=== PATIENT | male | born 1950 | race Caucasian/White ===

== ENCOUNTER 2017-01-09 12:49 | Inpatient (IN) | payer MEDICARE ==
--- NOTE | ~2017-01-09 | HP ---
History And Physical [place] [id number] [facility] [place]. [address] NAME: SCOTTIE OH : 54 STATUS : ADM Kenneth PAT#: [id number] AGE: 66 ADM/REG DATE : 01/09/17 MR#: [id number] REPORT SERV DATE: 01/09/17 DICTATED BY: THEODORA IRIZARRY DATE: 01/09/17 REPORT STATUS : Draft TRANSCRIBED BY: MODL DATE: 01/09/17 DATE OF ADMISSION: 01/09/2017 CHIEF COMPLAINT: Face swollen, left arm swollen. HISTORY OF PRESENT ILLNESS: Obtained from the patient who is a rather poor historian as well as the patient's family present at bedside, his sister and his present, also emergency room documents, as well as prior medical records available to us were thoroughly reviewed. According to the information available, the patient is a pleasant 66-year-old white man with a complicated and complex past medical history with baseline significant for recurrent staph infections on chronic suppressive therapy presently with doxycycline 100 mg p.o. b.i.d., presented to the emergency room by EMS because of swelling of the face and left upper extremity. The patient stated the symptoms started yesterday with a little eye swelling on the left side and then very significant this morning left eye and right eye area with almost completely shut by soft edema and swelling periorbitally. The swelling went down to the infraorbital area, left more than right, as well as noticed a swelling and redness on the left upper extremity. The patient also had a fall yesterday with some skin breakdown on the side of the nasal bridge. No significant bleeding noticed. No shortness of breath. No increased lower extremity edema (the patient had left AKA and at baseline he is mostly in bed). No coughing. No fever or chills documented in the past. The patient had this "swelling episode" usually twice a year and as per family "related infection" even though no facial swelling was reported or noticed in the past. The patient actually since his last admission for left knee hardware infection that had required fkoht-kmr-zlcp amputation in 04/2016, has not been back admitted in the hospital. The patient stated that he had missed some of his medications including for example Xarelto that was missed for about a week at that moment, but now he is back on it and now apparently he has been taking it back for several days now. In the emergency room, the patient was evaluated, he was noticed to be ill appearing, and actually his facial swelling and left upper extremity swelling has significantly decreased since his arrival in the emergency room. The patient denies any headache. Denies any phono or photophobia or URI-like symptoms. Denies starting any new medications or having any new lotions or soaps used. Further investigation revealed negative ultrasound for DVT of the left upper extremity and then slightly elevated white cell count of 11.1. Because of the above presentation and the patient's prior medical history, the patient was admitted on the Hospitalist Service for further management and evaluation. PAST MEDICAL HISTORY: Significant for hypertension, significant for reported prior CHF likely chronic diastolic dysfunction. Significant for recurrent and persistent Staph infection with MRSA in the different hardware as well as Staph epi. The patient presently is on suppressive therapy with doxycycline 100 mg p.o. b.i.d., apparently only followed up by Dr. Cristian Quintanilla of Infectious Disease; history of asthma/COPD as the patient has quit smoking long time ago; history of prostate cancer; history of DVT x2 in the past, previously on Coumadin, on Xarelto for about a year now; history of prior atrial fibrillation and irregular heart beat as per report; history of diabetes type 2, not insulin dependent; history of prior episodes of acute kidney injury; history of prostate cancer, overactive bladder, and bladder emptying problems; history of osteoarthritis and deconditioning with History And Physical [address] [address] NAME: SOCTTIE OH : 54 STATUS : ADM Kenneth PAT#: [id number] AGE: 66 ADM/REG DATE : 01/09/17 MR#: [id number] REPORT SERV DATE: 01/09/17 DICTATED BY: THEODORA IRIZARRY DATE: 01/09/17 REPORT STATUS : Draft TRANSCRIBED BY: MODL DATE: 01/09/17 multiple orthopedic surgeries with subsequent different infection and re-interventions; history of amputation of the left hofsl-aga-pbwl amputation due to infection and failure to clear the left knee hardware; history of splenectomy in the past; history of a stroke with cerebrovascular disease with TIAs in the past; history of depression and anxiety; history of chronic pain syndrome with peripheral neuropathy and opioid dependency; history of prior nephrolithiasis; history of GERD and gastric and esophageal ulcers; history of anemia; history of recurrent infections of MRSA, septic knees, varicose veins; history of glaucoma; history of recurrent cellulitis; prior history of childhood rheumatic fever and childhood nephrolithiasis; history of Corynebacterium and history of closed head injury. PAST SURGICAL HISTORY: Also complicated. Significant for splenectomy, multiple septic knee surgeries, appendectomy, cervical spine surgery, bilateral wrist surgery, thoracotomy for lung infection in 2001, bilateral shoulder surgery, vein stripping in the left leg and DVT in the legs x2, history of prostate cancer surgery in 2005 with no radiation and chemotherapy afterwards. He had multiple surgeries of the left knee over 25 or more, right total knee replacement in 2012, forehead scar cosmetic reconstruction at age 17, hernia repair in 2013, and finally amputation above the knee, left TKA in 04/2016. SOCIAL HISTORY: The patient is . Lives with the family, quite involved in his care. Quit smoking in 1985. Denies alcohol abuse. Denies illicit or recreational drug abuse. FAMILY HISTORY: Significant for diabetes and hypertension. Significant for Alzheimer disease and ALS, significant for prostate cancer. ALLERGIES: ACCORDING TO THE LIST PROVIDED, THE PATIENT IS ALLERGIC TO PENICILLIN, ERYTHROMYCIN BASE, ROCEPHIN, VANCOMYCIN, AND CODEINE. HOME MEDICATIONS: According to the list provided, the patient is supposed to take Lipitor 10 mg p.o. q.h.s.; Wellbutrin SR 150 mg p.o. t.i.d., Soma 175 mg p.o. t.i.d., Klonopin 0.5 mg p.o. q.h.s., Cardizem CD 360 mg p.o. daily, doxycycline 100 mg p.o. b.i.d., iron sulfate 325 mg p.o. daily, Neurontin 600 mg p.o. t.i.d., lisinopril 40 mg p.o. daily, metformin 500 mg p.o. daily and occasionally another one in the evening p.r.n. blood sugar more than 150, Prilosec 40 mg p.o. b.i.d., oxycodone 15 mg p.o. 5 times a day p.r.n. pain, Paxil 40 mg p.o. daily, Xarelto 20 mg p.o. q.a.m., and VESIcare 5 mg p.o. daily. REVIEW OF SYSTEMS: Per H and P, otherwise negative in all review of systems. Please note that the comprehensive review of system was obtained and pertinent positives were including in the H and P. PHYSICAL EXAMINATION: GENERAL: Pleasant, cooperative, but pale, frail, ill-appearing. VITAL SIGNS: Upon arrival in the emergency room, blood pressure 134/74, pulse 78, respiratory rate 16, temperature 97.8, and oxygen saturation 94% on room air. HEENT: Pupils are equal, round, and reactive to light. Extraocular movements intact. Throat, mild erythema. No exudate. Poor dentition. No signs of tenderness. Normocephalic. Face noticed to be with significant swelling periorbital, left more than History And Physical [address] [address] NAME: SCOTTIE OH : 54 STATUS : ADM Kenneth PAT#: [id number] AGE: 66 ADM/REG DATE : 01/09/17 MR#: [id number] REPORT SERV DATE: 01/09/17 DICTATED BY: THEODORA IRIZARRY DATE: 01/09/17 REPORT STATUS : Draft TRANSCRIBED BY: CINDY DATE: 01/09/17 right,with mild cellulitic changes at forehead and several skin breakdowns/scabs with some crusting at the bridge of the nose (significantly improved as per patient and patient's family present at bedside and confirm actually some pictures that the family members, his sister has it on her phone from this morning from home). NECK: Supple. No JVD. No bruits. No thyromegaly. No lymph nodes. LUNGS: Bilateral air entry with bibasilar crackles, emphysematous. No wheezing. HEART: Positive S1, S2. Regular rate and rhythm. Positive mitral regurgitation. Murmur at the apex. Positive aortic sclerosis murmur. PMI not displaced by palpation. ABDOMEN: Positive bowel sounds. Soft, obese, nontender, no guarding, no hepatosplenomegaly. EXTREMITIES: Status post left adrmi-ibj-lqpw amputation with decreased range of motion, osteoarthritic changes. No clubbing. No cyanosis. Trace edema. Right lower extremity; no calf tenderness. NEUROLOGIC: Alert and oriented x3. Grossly nonfocal. Cranial nerves 2 through 12 grossly intact. Motor strength 4 to 5/5 symmetrical bilateral. Deep tendon reflexes 2/2 symmetrical bilateral. Please note that the above mentioned exam is limited due to the patient's clinical condition. BACK: With decreased range of motion. No focal localized tenderness. No CVA tenderness. SKIN: With significant facial swelling and redness as described above, mostly around the left periorbital area. Previously noticed right periorbital swelling has subsided. Minimal cellulitic changes of the forehead area. Left upper extremity with slightly increased swelling comparing on the right with some redness and streaks in the part of the forearm and arm. There are noted left chest skin redness ? from recent trauma or fall on the left side, which the patient denies. There are no other signs of laceration, bruises, or rashes. SIGNIFICANT LABORATORY DATA: Left upper extremity venous duplex ultrasound by preliminary report from emergency room was negative for DVT. Urinalysis within normal limits, only small blood, but no signs of infection. White cell count 11.1, hemoglobin 12.6, platelet count 389. Sodium 143, potassium 3.5, chloride 106, bicarb 30, BUN 8, creatinine 0.77, glucose 85, calcium 0.9. Liver function tests within normal limits except albumin 3.0, which is slightly decreased. EKG not available, not done. Chest x-ray, not available, not done. Evaluation of rhythm strips on the monitor showed normal sinus rhythm at 70 beats per minute. ASSESSMENT AND PLAN AND PROBLEM LIST: The patient is a pleasant 66-year-old white man with a complex past medical history on apparent suppressive therapy for Staph infection, presented with increasing swelling of face and the left upper extremity suspicious for cellulitis in the setting of him being immunocompromised. 1. ID problem:. a. The left upper extremity swelling, possible cellulitis. b. Facial swelling and periorbital edema/possible cellulitis. c. Immunocompromised status, status post splenectomy. History And Physical [address] [address] NAME: SCOTTIE OH : 54 STATUS : ADM Kenneth PAT#: [id number] AGE: 66 ADM/REG DATE : 01/09/17 MR#: [id number] REPORT SERV DATE: 01/09/17 DICTATED BY: THEODORA IRIZARRY DATE: 01/09/17 REPORT STATUS : Draft TRANSCRIBED BY: CINDY DATE: 01/09/17 d. Leukocytosis likely infectious. e. "Chronic" staph and MRSA infections, on suppressive therapy. For all the above, we are going to admit the patient on the Hospitalist Service. We are going to obtain an ID consult. For his allergies, we are going to use Zyvox 600 mg IV q.12 hours until further diagnostic testing and evaluation possible. We are going to elevate left upper extremity and keep head/face elevated. Obtain blood cultures and check a procalcitonin and lactate level. Consider further facial/head imaging such as MRI and contrast. If the swelling and redness do not resolve. 2. Thromboembolic disease. The patient is on Xarelto for deep venous thrombosis, on chronic anticoagulation. The patient apparently had some missed doses in the last month, presently back on it. No signs of deep venous thrombosis, left upper extremity. 3. Cardiovascular:. a. Essential hypertension. b. Congestive heart failure and history of diastolic dysfunction likely chronic. Continue medications including Cardizem and lisinopril. Use IV hydralazine p.r.n. for increased blood pressure. 4. Endocrinologic problem:. a. Diabetes type 2, uncontrolled, not insulin dependent with complications. b. Hyperlipidemia, mixed type. Continue medication. Low-cholesterol diet. We are going to hold metformin for now. Check a sliding scale, diabetic education. 5. Neurologic and psychiatric problem:. a. Chronic pain syndrome, history of chronic pain medication. b. Depression, anxiety, and insomnia. Continue his home medications including the unusual dose of Wellbutrin and Paxil as well. c. Neuropathy, likely peripheral neuropathy associated with underlying medical disease. Continue Neurontin. Provide pain. 6. Chronic obstructive pulmonary disease, likely stable. Continue bronchodilator therapy p.r.n. 7. Gastroesophageal reflux disease without esophagitis. Continue PPI, anti-reflux or anti- GERD instructions discussed with the patient. 8. Status post left above-knee amputation with significant debilitation. The patient would benefit from restarting physical therapy and considering rehab. PROGNOSIS: Moderately good for this admission. Discussed with patient and the patient's family. Questions were answered in full. Please note that the patient is a full code at this moment as discussed with the patient at bedside. RF/MODL Theodora Irizarry M.D. / [id number] CC: History And Physical [address] [place]. [address] NAME: SCOTTIE OH : 54 STATUS : ADM Kenneth PAT#: [id number] AGE: 66 ADM/REG DATE : 01/09/17 MR#: [id number] REPORT SERV DATE: 01/09/17 DICTATED BY: THEODORA IRIZARRY ION DATE: 01/09/17 REPORT STATUS : Draft TRANSCRIBED BY: MODL DATE: 01/09/17 Marilynn Sparks M.D.
--- NOTE | ~2017-01-09 | DS ---
Discharge Summary [facility] [address] [place]. [address] NAME: SCOTTIE OH : 54 STATUS : DIS IN PAT#: [id number] AGE: 66 ADM/REG DATE : 01/10/17 MR#: [id number] REPORT SERV DATE: 01/16/17 DICTATED BY: YU WILKERSON DATE: 01/11/17 REPORT STATUS : Draft TRANSCRIBED BY: CINDY DATE: 01/11/17 ADMISSION DATE: 01/10/2017 DISCHARGE DATE: 01/11/2017 CONSULTATION: Infectious Disease. INVASIVE PROCEDURE/OPERATION: None. DISCHARGE DIAGNOSES: 1. Left periorbital cellulitis. 2. History of left lower extremity srpbr-ojp-otfx amputation. 3. History of deep venous thrombosis. 4. Chronic obstructive pulmonary disease. 5. Hypertension. 6. Diabetes mellitus. 7. Depression. 8. Chronic phantom pain. 9. Chronic opioid use. DISCHARGE CONDITION: Stable. IMAGING: CT of the head and face without contrast, impression; 1. No acute infarct or hemorrhage. 2. Stable mild atrophic and chronic white matter gliosis. 3. Left periorbital and preseptal soft tissue thickening without evidence of abscess collection. 4. The globes and optic nerves have a normal appearance and are asymmetric. 5. Extensive mucosal thickening with an air-fluid level in the left maxillary sinus. HISTORY OF PRESENT ILLNESS: For detailed HPI, please make reference to Dr. Irizarry's dictation on 01/09/2017. In brief, this is a 66-year-old gentleman with medical history of hypertension, who was on chronic suppressive therapy with doxycycline for recurrent staph infection due to nonsalvageable infected prosthetic device who has now undergone a left yaqfa-zst-jrjj amputation. He presented with complaint of left facial swelling and arm swelling. The patient denied any recent history of trauma prior to presentation. Denied any visual changes. No loss of vision or blurry vision. There was no associated blurry vision, double vision, or diplopia. In the ER, vital signs, blood pressure was 134/74, pulse rate was 78 beats per minute, respiratory rate was 16, temperature was 97.8, saturating 94% on room air. Physical exam was noted for left periorbital swelling with mild erythema. Also noted to have some crusting on the bridge of the nose. LABORATORY DATA: White cell count was 11.1, hemoglobin was 12.6. Creatinine was 0.77. An assessment of left periorbital cellulitis was made in the ER. The patient was admitted to the Hospitalist Service. Left periorbital cellulitis. Blood cultures were taken. The patient was started on broad- Discharge Summary [facility] [address] [facility] [place]. [address] NAME: SCOTTIE OH : 54 STATUS : DIS IN PAT#: [id number] AGE: 66 ADM/REG DATE : 01/10/17 MR#: [id number] REPORT SERV DATE: 01/16/17 DICTATED BY: YU WILKERSON DATE: 01/11/17 REPORT STATUS : Draft TRANSCRIBED BY: CINDY DATE: 01/11/17 spectrum IV antibiotics. Infectious Disease was consulted. The patient underwent CT of the head and face that showed no evidence of abscess or drainable abscess collection. Rest of the report as dictated above. The patient's WBC trended down to within normal limits. Blood cultures yielded no growth. The patient was transitioned from IV broad-spectrum antibiotics to Duricef p.o. prior to discharge. The patient was advised to continue. Also prior to discharge, the patient's left periorbital swelling significantly reduced. The patient's vision remained intact. The patient was advised to follow up with primary care physician as an outpatient within one to two weeks of discharge. Left above the knee amputation during this admission. Prior to presentation, the patient was on doxycycline for chronic suppressive therapy of an unsalvageable left arthroplasty device. However, during the last admission, the patient underwent left cuxdz-kbn-ebpv amputation. Stump during this admission appeared to be healing well. No evidence of infection in the left stump. Per ID recommendation, the patient did not require chronic suppressive therapy anymore. Hence doxycycline was discontinued during this admission. The patient will continue to follow up with primary care physician. DISCHARGE MEDICATIONS: 1. Duricef 1000 mg p.o. b.i.d. 2. Lipitor 10 mg p.o. daily. 3. Wellbutrin SR 150 mg p.o. t.i.d. 4. Diltiazem 360 mg p.o. daily. 5. Iron 325 mg p.o. daily. 6. Gabapentin 600 mg p.o. daily. 7. Lisinopril 40 mg p.o. daily. 8. Prilosec 40 mg p.o. daily. 9. Paxil 40 mg p.o. daily. 10.Xarelto 20 mg p.o. daily. 11.Klonopin 0.5 mg p.o. at bedtime. 12.Metformin 500 mg p.o. daily. 13.Oxycodone 50 mg p.o. for 5 days. DISCHARGE ACTIVITY: As tolerated. DISCHARGE DIET: ADA 1800-calorie diet. DISCHARGE FOLLOWUP: 1. Follow up with primary care physician within one week of discharge. 2. Greater than 30 minutes was used to prepare this patient's discharge, reconcile of medication, and advised the patient on discharge plans, and followup. DICTATED BY: MD JONATHAN Covarrubias/CINDY Discharge Summary [address] [address] NAME: SCOTTIE OH : 54 STATUS : DIS IN PAT#: [id number] AGE: 66 ADM/REG DATE : 01/10/17 MR#: [id number] REPORT SERV DATE: 01/16/17 DICTATED BY: YU WILKERSON DATE: 01/11/17 REPORT STATUS : Draft TRANSCRIBED BY: CINDY DATE: 01/11/17 Yu Wilkerson MD / [id number] CC: MD NATALYA Covarrubias PAUL E
[~2017-01-09 12:49] MED LIST: *UNABLE1; *UNABLE2; *UNABLE3; ACET500CAP PO; ACIDOPHILU2 PO; BEN25 PO; BIST PO; BUM1 PO; BUPROBAN150 MG PO; C5 PO; CARDCD180 PO; CARDCD360 PO; CARDIZEM LA360 MG PO; CARDIZEM PO; CAT1 PO; CLEOCIN300 MG PO; CLINDA150 PO; COUMADIN10 MG PO; COUMADIN6 MG PO; COUMADIN7.5 MG PO; DETROLLA4 PO; DILTIAZEM ER PO; DITRO5 PO; DITROPAN XL15 MG PO; DOK100 MG PO; DORYX100 MG PO; DOXYCYCLINE PO; DSS PO; FERROUS SULF325 M1 PO; FLEX PO; FLEXERIL5 MG PO; GLUCPH PO; HCTZ12.5 PO; HUMALOG SC; IMOD PO; IRON325 MG PO; KLONO1 PO; KLONO2 PO; KLONO5 PO; LEVAQUIN5T PO; LEVAQUIN750 MG PO; LIDODERM T; LIPITOR PO; LIPITOR10 PO; LISINOPRIL PO; LISINOPRIL40 MG PO; LOTRIMIN AF12 EX; LOTRIMIN AF12 TOP; LOVENOX40 SC; MELA3 PO; METFORMIN PO; METHOC750B PO; MICROZIDE PO; MONODOX100 MG PO; NATURA2 OP; NEUR100 PO; NEUR300 PO; NEUR600 PO; NEURONTIN PO; NORCO1 TAB PO; NORV10 PO; OXYCOD PO; OXYCONTIN15 MG PO; PAXIL PO; PAXIL40 MG PO; PCET PO; PERCOCET1 TA4 PO; PRILO PO; PRILOSEC40 MG PO; PRIN10 PO; PRIN20 PO; PROVHFA INH; PT UNABLE TO RECALL; RELA5 PO; REM15 PO; RESTORIL30 MG PO; ROXICODONE30 MG PO; ROZEREM8 MG PO; SENTAB PO; SOMATAB PO; SPIRIVA INH; TEARS AGAI1 PO; TEARS NATURA OPH; TIAZA3 PO; TIAZA4 PO; TREX PO; VESICARE PO; VESICARE5 PO; VIB100 PO; VIBRATAB100 MG PO; VICODINTAB PO; VISINE0.05 % OPH; VIST25 PO; WELLSR150 PO; X25 PO; X5 PO; XANAX PO; XARELTO PO; XARELTO20 MG PO; ZESTRIL40 MG PO; ZOCOR20 PO; [UNRECOGNIZED DRUG - OTHER]; [UNRECOGNIZED DRUG - OTHER] PO
[2017-01-09 16:00] LABS: ASCORBIC ACID (UR NOT ORDER) NEG (NEG); BILIRUBIN, URINE NEGATIVE (NEG); ER URINALYSIS TAT 0 Hrs 09 Mins; KETONE, URINE NEGATIVE (NEG); LEUKOCYTE ESTERASE(NOT OR NEG (NEG); NITRITE (URINE) NEG (NEG); WBC (NOT ORDERED) (RFLEX) 1 (0-5)
[2017-01-09 17:05] LABS: BASOPHILS 0.4 %; BASOPHILS ABSOLUTE 0.05 10/3/uL (0.0-0.16); EOSINOPHILS 9.8 %; EOSINOPHILS ABSOLUTE 1.09 10/3/uL (0.0-0.53); IMMATURE GRANULOCYTES 0.4 %; IMMATURE GRANULOCYTES ABSOLUTE 0.04 10/3/uL (0.0-0.11); LYMPHOCYTES 32.5 %; LYMPHOCYTES ABSOLUTE 3.62 10/3/uL (0.67-4.30); MEAN PLATELET VOLUME 9.8 fL (9.2-13.0); MONOCYTES 5.8 %; MONOCYTES ABSOLUTE 0.65 10/3/uL (0.21-1.20); NEUTROPHILS 51.1 %; NEUTROPHILS ABSOLUTE 5.69 10/3/uL (2.02-8.40); PLATELET COUNT 389 10/3/uL (150-400); RBC DISTRIBUTION WIDTH 15.5 % (12.0-16.0); WHITE BLOOD CELLS 11.1 10/3/uL (4.5-10.5)
[2017-01-09 17:06] LABS: HEMATOCRIT 37.6 % (40.0-51.0); HEMOGLOBIN 12.6 g/dL (13.6-17.8); MANUAL DIFF NO %; MEAN CORPUS HGB CONC 33.5 g/dL (32.0-36.0); MEAN CORPUSCULAR HEMOGLOB 32.2 pg (26.0-34.0); MEAN CORPUSCULAR VOLUME 96.2 fL (80-100); RED CELL COUNT 3.91 10/6/uL (4.7-6.1)
[2017-01-09 17:18] LABS: A/G RATIO 0.7 (0.7-1.9); ALKALINE PHOSPHATASE 122 U/L (45-117); BUN (BLOOD UREA NITROGEN) 8 MG/DL (6-23); CALCIUM, SERUM 8.9 MG/DL (8.5-10.4); CHLORIDE, SERUM 106 MMOL/L (96-112); CO2 (CARBON DIOXIDE) 30 MMOL/L (24-34); CREATININE 0.77 MG/DL (0.70-1.30); GFR AFRICAN AMERICAN 111 ML/MIN (>=60); GFR NON AFRICAN AMERICAN 96 ML/MIN (>=60); GLOBULIN 4.6 G/DL (2.5-4.1); GLUCOSE, SERUM 85 MG/DL (60-99); POTASSIUM, SERUM 3.5 MMOL/L (3.5-5.3); SGOT(AST) 31 U/L (5-40); SGPT(ALT) 16 U/L (5-65); SODIUM, SERUM 143 MMOL/L (135-148); TOTAL BILIRUBIN 0.5 MG/DL (0-1.2); TOTAL PROTEIN 7.6 G/DL (6.0-8.5)
[2017-01-09] MEDS ORDERED: FERROUS SULF325 M1 PO (17:48)
[2017-01-09] MEDS ORDERED: VESICARE5 PO (17:48)
[2017-01-09] MEDS ORDERED: ROXICODONE15 MG PO (17:49)
[2017-01-09] MEDS ORDERED: ZESTRIL40 MG PO (17:49)
[2017-01-09] MEDS ORDERED: DORYX100 MG PO (17:49)
[2017-01-09] MEDS ORDERED: GLUCPH PO ×2 (17:50)
[2017-01-09] MEDS ORDERED: PRILOSEC40 MG PO (17:51)
[2017-01-09] MEDS ORDERED: WELLSR150 PO (17:51)
[2017-01-09] MEDS ORDERED: KLONO5 PO (17:51)
[2017-01-09] MEDS ORDERED: XARELTO20 MG PO (17:51)
[2017-01-09] MEDS ORDERED: SOMATAB PO (17:52)
[2017-01-09] MEDS ORDERED: PAXIL40 MG PO (17:52)
[2017-01-09] MEDS ORDERED: NEUR600 PO (17:52)
[2017-01-09] MEDS ORDERED: TIAZA4 PO (17:53)
[2017-01-09] MEDS ORDERED: LIPITOR10 PO (17:54)
[2017-01-09 21:45] LABS: FREE T4 1.16 NG/DL (0.76-1.46); PHOSPHORUS, SERUM 2.4 MG/DL (2.5-4.5)
[2017-01-09 21:47] LABS: ULTRASENSITIVE TSH 0.593 MCIU/ML (0.358-3.740)
[2017-01-09 22:01] LABS: PROCALCITONIN 0.25 ng/mL (<0.5)
[2017-01-10 10:44] LABS: BASOPHILS 0.9 %; BASOPHILS ABSOLUTE 0.06 10/3/uL (0.0-0.16); EOSINOPHILS 12.3 %; EOSINOPHILS ABSOLUTE 0.85 10/3/uL (0.0-0.53); HEMATOCRIT 38.3 % (40.0-51.0); HEMOGLOBIN 12.8 g/dL (13.6-17.8); IMMATURE GRANULOCYTES 0.3 %; IMMATURE GRANULOCYTES ABSOLUTE 0.02 10/3/uL (0.0-0.11); LYMPHOCYTES ABSOLUTE 2.07 10/3/uL (0.67-4.30); MEAN CORPUS HGB CONC 33.4 g/dL (32.0-36.0); MEAN CORPUSCULAR HEMOGLOB 32.2 pg (26.0-34.0); MEAN CORPUSCULAR VOLUME 96.2 fL (80-100); MEAN PLATELET VOLUME 9.3 fL (9.2-13.0); MONOCYTES ABSOLUTE 0.21 10/3/uL (0.21-1.20); NEUTROPHILS 53.5 %; NEUTROPHILS ABSOLUTE 3.69 10/3/uL (2.02-8.40); PLATELET COUNT 370 10/3/uL (150-400); RBC DISTRIBUTION WIDTH 15.1 % (12.0-16.0); RED CELL COUNT 3.98 10/6/uL (4.7-6.1); WHITE BLOOD CELLS 6.9 10/3/uL (4.5-10.5)
[2017-01-10 10:45] LABS: MANUAL DIFF NO %
[2017-01-10 10:50] LABS: INTERNATIONAL NORMAL RATI 1.7 UNITS (-); PARTIAL THROMBO TIME 39.6 SEC (22.5-37.2)
[2017-01-10 10:52] LABS: PROTIME (NOT ORD) 19.6 SEC (12.0-14.5)
[2017-01-10 11:02] LABS: ALBUMIN 2.7 G/DL (3.5-5.0); BUN (BLOOD UREA NITROGEN) 6 MG/DL (6-23); C-REACTIVE PROTEIN 46.5 MG/L (<8.0); CALCIUM, SERUM 8.4 MG/DL (8.5-10.4); CHLORIDE, SERUM 106 MMOL/L (96-112); CO2 (CARBON DIOXIDE) 26 MMOL/L (24-34); GFR AFRICAN AMERICAN 109 ML/MIN (>=60); GFR NON AFRICAN AMERICAN 94 ML/MIN (>=60); GLUCOSE, SERUM 173 MG/DL (60-99); PHOSPHORUS, SERUM 2.3 MG/DL (2.5-4.5); POTASSIUM, SERUM 3.8 MMOL/L (3.5-5.3); SODIUM, SERUM 138 MMOL/L (135-148); TROPONIN I <0.02 NG/ML (<0.05)
[2017-01-10 11:03] LABS: CK-MB 3.3 NG/ML; CPK 126 U/L (0-200)
[2017-01-11 04:37] LABS: BASOPHILS 0.5 %; BASOPHILS ABSOLUTE 0.05 10/3/uL (0.0-0.16); EOSINOPHILS 7.3 %; EOSINOPHILS ABSOLUTE 0.73 10/3/uL (0.0-0.53); HEMATOCRIT 37.2 % (40.0-51.0); HEMOGLOBIN 12.5 g/dL (13.6-17.8); IMMATURE GRANULOCYTES 0.2 %; IMMATURE GRANULOCYTES ABSOLUTE 0.02 10/3/uL (0.0-0.11); LYMPHOCYTES 34.1 %; LYMPHOCYTES ABSOLUTE 3.43 10/3/uL (0.67-4.30); MEAN CORPUS HGB CONC 33.6 g/dL (32.0-36.0); MEAN CORPUSCULAR HEMOGLOB 31.9 pg (26.0-34.0); MEAN CORPUSCULAR VOLUME 94.9 fL (80-100); MEAN PLATELET VOLUME 9.3 fL (9.2-13.0); NEUTROPHILS 51.9 %; NEUTROPHILS ABSOLUTE 5.23 10/3/uL (2.02-8.40); PLATELET COUNT 411 10/3/uL (150-400); RBC DISTRIBUTION WIDTH 15.3 % (12.0-16.0); RED CELL COUNT 3.92 10/6/uL (4.7-6.1)
[2017-01-11 04:38] LABS: MANUAL DIFF NO %; WHITE BLOOD CELLS 10.1 10/3/uL (4.5-10.5)
[2017-01-11 04:49] LABS: BUN (BLOOD UREA NITROGEN) 6 MG/DL (6-23); CALCIUM, SERUM 8.5 MG/DL (8.5-10.4); CHLORIDE, SERUM 105 MMOL/L (96-112); CREATININE 0.69 MG/DL (0.70-1.30); GFR AFRICAN AMERICAN 116 ML/MIN (>=60); GFR NON AFRICAN AMERICAN 100 ML/MIN (>=60); POTASSIUM, SERUM 3.7 MMOL/L (3.5-5.3); SODIUM, SERUM 141 MMOL/L (135-148)
[2017-01-11 04:50] LABS: CO2 (CARBON DIOXIDE) 32 MMOL/L (24-34); GLUCOSE, SERUM 105 MG/DL (60-99); PHOSPHORUS, SERUM 3.2 MG/DL (2.5-4.5)
[2017-01-11] MEDS ORDERED: DURICEF PO (11:31)
[2017-01-20] MEDS ORDERED: BANOPHEN25 MG PO (16:14)
[2017-01-20] MEDS ORDERED: KLONO5 PO (16:15)
[2017-01-20] MEDS ORDERED: VESICARE5 PO (16:15)
[2017-01-20] MEDS ORDERED: BIST PO (16:15)
[2017-01-20] MEDS ORDERED: ROXICODONE30 MG PO (16:15)
[2017-01-20] MEDS ORDERED: WELLSR150 PO (16:15)
[2017-01-20] MEDS ORDERED: NEUR600 PO (16:15)
[2017-01-20] MEDS ORDERED: SOMATAB PO (16:15)
[2017-01-20] MEDS ORDERED: DOCUSATE/SENNOSIDES (16:16)
[2017-01-20] MEDS ORDERED: TAZTIA X3 PO (16:16)
[2017-01-20] MEDS ORDERED: PRILOSEC40 MG PO (16:16)
[2017-01-20] MEDS ORDERED: FERROUS SULF325 M1 PO (16:17)
[2017-01-20] MEDS ORDERED: CEFADROXIL1 GM PO (16:17)
[2017-01-20] MEDS ORDERED: PAXIL40 MG PO (16:17)
[2017-01-20] MEDS ORDERED: LIPITOR10 PO (16:17)
[2017-01-20] MEDS ORDERED: LOPERAMIDE (16:17)
[2017-01-20] MEDS ORDERED: GLUCPH PO (16:17)
[2017-01-20] MEDS ORDERED: XARELTO20 MG PO (16:18)
[2017-01-20] MEDS ORDERED: DOXYCYCLINE (16:18)
[2017-01-20] MEDS ORDERED: ROZEREM8 MG PO (16:18)
[2017-01-20] MEDS ORDERED: LISINOPRIL40 MG PO (16:18)
[2017-01-20] MEDS ORDERED: VENTOLIN HFA INH (16:18)
[2017-01-20] MEDS ORDERED: *UNABLE2 (16:23)
[2017-01-21] MEDS ORDERED: GLUCPH PO (09:33)
[2017-01-21] MEDS ORDERED: 8 HOUR650 MG PO (09:37)
[2017-01-21] MEDS ORDERED: FLONASE NAS (09:39)
[2017-01-21] MEDS ORDERED: VISINE TEARS15 ML OPH (09:39)
[2017-01-23] MEDS ORDERED: LEVAQUIN750 MG PO (09:04)
== END 2017-01-11 13:13 | disposition home or self-care (01) | DRG 603 ==
LOC: ER 12:49 → CDU1 18:07
PROVIDERS: Emergency Medicine; Hospitalist; Internal Medicine
DX: L03.213 Periorbital cellulitis (principal); Z89.612 Acquired absence of left leg above knee; G54.6 Phantom limb syndrome with pain; I11.0 Hypertensive heart disease with heart failure; I50.32 Chronic diastolic (congestive) heart failure; F11.20 Opioid dependence, uncomplicated; E11.65 Type 2 diabetes mellitus with hyperglycemia; J44.9 Chronic obstructive pulmonary disease, unspecified; F32.9 Major depressive disorder, single episode, unspecified; Z86.718 Personal history of other venous thrombosis and embolism; Z79.01 Long term (current) use of anticoagulants; Z86.14 Personal history of Methicillin resistant Staphylococcus aureus infection; Z85.46 Personal history of malignant neoplasm of prostate; N32.81 Overactive bladder; Z86.73 Personal history of transient ischemic attack (TIA), and cerebral infarction without residual deficits; F41.9 Anxiety disorder, unspecified; Z92.21 Personal history of antineoplastic chemotherapy; Z96.653 Presence of artificial knee joint, bilateral; Z83.3 Family history of diabetes mellitus; Z88.0 Allergy status to penicillin; Z88.1 Allergy status to other antibiotic agents; Z79.84 Long term (current) use of oral hypoglycemic drugs; G89.4 Chronic pain syndrome
CPT/HCPCS: 70450; 70486; 71020; 80048; 80053; 80069; 81001; 82550; 82553; 82962; 83036; 83735; 84100; 84145; 84439; 84443; 84484; 85025; 85610; 85730; 86140; 87040; 93005; 93971; 99285; A9270-GY; C8929; J0360; J0690; J1170; J2020; J3475; Q9957